=== PATIENT | female | born 1985 | race Caucasian/White ===

== ENCOUNTER 2021-09-05 08:14 | Day surgery (SDC) | payer OTHER ==
[2021-09-05] VITALS (119 sets, daily range): BP systolic 47–145; BP diastolic 28–100
[~2021-09-05] VITALS: Ht 170.2 cm; Wt 75.0 kg
--- NOTE | 2021-09-05 07:20 | NUR ---
PATIENT TO ROOM AMBULATORY. PATIENT IS ALERT AND OREITNED X3. CONSENTS OBTAINED. VITALS OBTAINED. DR CHÁVEZ NOTIFIED. NEW ORDERS RECEIVED. ADMISSION ASESSMENT COMPLETED AT THIS TIME. IV ESTABLISHED. LABS SENT FOR REFERENCE. ORIENTED PATIENT TO ROOM AND UNIT. CALL LIGHT IN REACH. WILL CONTINUE TO MONITOR.
[2021-09-05 09:12] LABS: HEMATOCRIT 39.2 % (37.0-47.0); HEMOGLOBIN 12.6 g/dl (12.0-16.0); IMMATURE GRANULOCYTES 0.2 % (0.0-5.0); MEAN CELL VOLUME 89.1 fL CALC (80.0-100.0); MEAN CORPUSCULAR HGB 28.6 pG CALC (26.0-32.0); MEAN CORPUSCULAR HGB CONC 32.1 g/dL CAL (32.0-36.0); NEUT# 3.35 thou/uL (2.00-7.15); RED BLOOD COUNT 4.4 mill/uL (4.20-5.60); RED CELL DISTRI WIDTH 11.6 % (11.5-15.5)
[2021-09-05 09:29] LABS: ALBUMIN 4.1 g/dL (3.2-5.0); ALKALINE PHOSPHATASE 60 u/l (38-126); ANION GAP 13 (6-22 (CALC)); BILIRUBIN, TOTAL 0.3 mg/dL (0.0-1.4); BUN 9 mg/dL (7-17); BUN/CREATININE RATIO 15 (12-20 (CALC)); CARBON DIOXIDE 30 mmol/l (22-30); CHLORIDE 100 mmol/l (95-108); CREATININE 0.6 mg/dL (0.5-1.0); GFR > 60 ML/MIN (>=60 (CALC)); GFR FOR AFR.AMER. > 60 ML/MIN (>=60 (CALC)); POTASSIUM 4.5 mmol/l (3.5-5.1); SGOT/AST 30 u/l (14-36); SODIUM 139 mmol/l (137-146); TOTAL PROTEIN 8.1 g/dL (6.3-8.2)
--- NOTE | 2021-09-05 09:45 | NUR ---
DR CHÁVEZ AT BEDSIDE AT THIS TIME.
--- NOTE | 2021-09-05 11:30 | NUR ---
Induction Note Patient to [facility] procedure room. Time out performed at 1135. Patient placed on monitors, Aubrie hugger, bilateral wrist restraints applied for ET tube protection. Versed 5mg given IV push at 1136 Tourniquet applied to right arm Lidocaine 100mg given at 1137 IV push followed by Rocoronium 10mg at 1137 IV push and held for 90 seconds. Propofol bolus of 110mg given at 1138 IV push. Succinylcholine 80mg given IV push at 1139. Smooth intubation with 7.5 ETT. Positive CO2. Positive Auscultation for air exchange. Patient placed on ventilator for spontaneous ventilation. Placed on Propofol IV drip at 1140. OG inserted. Positive air on auscultation. Positive gastric content. Stomach washed at this time. Naltrexone 75mg given via OG tube. OG clamped for 45 minutes. Will monitor patient for symptoms of withdrawal and adjust propfol accordingly.
--- NOTE | 2021-09-05 12:45 | NUR ---
OG open note OG open at this time. Gastric content draining into drainage bag. OG to drain for 45 minutes. Propofol will be titrated down based on patient.
--- NOTE | 2021-09-05 13:30 | NUR ---
OG close note Stomach washed at this time. Naltrexone 50 mg with Clonidine 0.3 mg via OG tube. OG will be clamped for 45 minutes.
--- NOTE | 2021-09-05 14:45 | NUR ---
clonidine 0.2 given via og and clamped will prepare to extubate.
--- NOTE | 2021-09-05 15:20 | NUR ---
Extubation note Closing medications given Benadryl 50mg IV push, Decadron 10mg IV push,Magnesium 4 grams IV, Zofran 8mg IV push, Octreotide 100mcg SC. Stomach washed out prior to extubation. Suctioned gastric content. OG removed. Patient extubated. Propofol Discontinued. Wrist restraints removed. Aubrie hugger Removed. See [facility] Moderate sedate recovery record for further notes and assessment.
--- NOTE | 2021-09-05 15:34 | NUR ---
PT ARRIVED TO FLOOR VIA BED ACCOMPAINED BY DR HERNÁNDEZ IN STABLE CONDITION. RESIRATIONS SHALLOW ON 2L NC. VITALS COMPLETED. VSS. NO SIGNS OF ANY DISTRESS. ALL SAFTEY PRECAUTIONS ARE IN PLACE WITH CALL LIGHT IN REACH. BED ALARM ACTIVE.
--- NOTE | 2021-09-05 16:35 | NUR ---
RECIEVED REPORT FROM SILVIANO RN
--- NOTE | 2021-09-05 17:12 | NUR ---
PT MEDICATED WITH ATIVAN FOR AGITATION. REPSIRATIONS EVEN AND UNLABORED. NO DSIRTESS NOTED. SAFTYE PRECAUTIONS IN PLACE WITH CALL LIGHT IN REACH. BED ALARM ACTIVE.
[2021-09-06 03:45] VITALS: BP 136/64
[2021-09-06 05:18] LABS: HEMATOCRIT 37.4 % (37.0-47.0); HEMOGLOBIN 12.3 g/dl (12.0-16.0); IMMATURE GRANULOCYTES 0.1 % (0.0-5.0); MEAN CELL VOLUME 87.4 fL CALC (80.0-100.0); MEAN CORPUSCULAR HGB 28.7 pG CALC (26.0-32.0); MEAN CORPUSCULAR HGB CONC 32.9 g/dL CAL (32.0-36.0); NEUT# 6.09 thou/uL (2.00-7.15); RED BLOOD COUNT 4.28 mill/uL (4.20-5.60); RED CELL DISTRI WIDTH 11.6 % (11.5-15.5)
[2021-09-06 05:43] LABS: ALBUMIN 3.9 g/dL (3.2-5.0); ALKALINE PHOSPHATASE 61 u/l (38-126); BUN 10 mg/dL (7-17); BUN/CREATININE RATIO 21 (12-20 (CALC)); CHLORIDE 108 mmol/l (95-108); CREATININE 0.5 mg/dL (0.5-1.0); GFR > 60 ML/MIN (>=60 (CALC)); GFR FOR AFR.AMER. > 60 ML/MIN (>=60 (CALC)); MAGNESIUM 2.2 mg/dL (1.6-2.3); SGOT/AST 30 u/l (14-36); SODIUM 141 mmol/l (137-146); TOTAL PROTEIN 7.8 g/dL (6.3-8.2)
[2021-09-06 05:46] LABS: ANION GAP 15 (6-22 (CALC)); BILIRUBIN, TOTAL 0.5 mg/dL (0.0-1.4); CARBON DIOXIDE 22 mmol/l (22-30)
[2021-09-06 06:37] VITALS: BP 131/65
--- NOTE | 2021-09-06 08:10 | NUR ---
GOT REPORT FROM SALAS DEAN. ASSESSED PATIENT. PATIENT IS SLEEPING AND WHEN I TRIED TO WAKE HER HER SPEECH IS UNCLEAR. PATIENT ALLOWED FOR ASSESSMENT. PATIENT WENT BACK TO SLEEP.
[2021-09-06 08:23] VITALS: BP 133/67
[2021-09-06 08:51] VITALS: BP 125/75
--- NOTE | 2021-09-06 12:45 | NUR ---
Discharge instructions given. Patient verbalizes understanding of same. Discharged in stable condition via Wheelchair to Home with family. All belongings sent with pt.
== END 2021-09-06 12:44 | disposition home or self-care (01) | DRG 897 ==
LOC: ANR 08:14 → MS2 08:15 → ANR 09-06 12:44
PROVIDERS: ATTEND Anesthesiology
DX: F11.20 Opioid dependence, uncomplicated (principal)
CPT/HCPCS: J2060; J2354